=== PATIENT | female | born 1955 | race Caucasian/White ===

== ENCOUNTER 2016-12-01 12:15 | Inpatient (IN) | payer OTHER ==
--- NOTE | ~2016-12-01 | HP ---
History And Physical [place] [id number] [facility] [place]. [address] NAME: BROOKE HERNADEZ : 55 STATUS : ADM Adis PAT#: [id number] AGE: 61 ADM/REG DATE : 12/01/16 MR#: [id number] REPORT SERV DATE: 12/02/16 DICTATED BY: SANTOS ROBERTS DATE: 12/02/16 REPORT STATUS : Draft TRANSCRIBED BY: MODL DATE: 12/02/16 DATE OF ADMISSION: 12/01/2016 REASON FOR ADMISSION: Ovarian cancer, diarrhea. HISTORY OF PRESENT ILLNESS: Ms. Hernadez is a delightful 61-year-old female with several year history of persistent ovarian cancer, currently receiving Gemzar and Avastin chemotherapy. She called the Answering Service yesterday complaining of lethargy, fatigue, and significant diarrhea. She was admitted to the hospital for IV fluid hydration. C diff was checked and was consistent with Clostridium difficile colonic infection and she was started on oral vancomycin. This morning, her diarrhea has gotten significantly better. She has not had any diarrhea since starting the vancomycin. She has not had any antibiotics in the recent past and has not had any hospital admissions. PAST MEDICAL HISTORY: Obesity, migraine headaches, gastroesophageal reflux disease, fibromyalgia, knee pain, hypertension, and cardiac dysfunction. PAST SURGICAL HISTORY: Cholecystectomy, arthroscopic knee surgery, and exploratory laparotomy with tumor debulking for her ovary cancer. GYNECOLOGIC HISTORY: Her colonoscopy is up to date as well as her mammogram. FAMILY HISTORY: Her mother of non-Hodgkin's lymphoma. SOCIAL HISTORY: Negative tobacco, alcohol, or illicit drug use. MEDICATIONS: Please see chart. ALLERGIES: COMPAZINE, SHE GETS SEIZURES. REVIEW OF SYSTEMS: Significant for resolved diarrhea, fatigue. She denies chest pain, no shortness of breath. She denies any vaginal bleeding. No current abdominal pain. PHYSICAL EXAMINATION: VITAL SIGNS: Her temperature is 98.8, pulse is 83, blood pressure is 170/72. HEENT: Normocephalic, atraumatic. HEART: Regular rate and rhythm. LUNGS: Clear to auscultation bilaterally. She has 1+ bilateral lower extremity edema that is due to her cardiac dysfunction, she is on diuretics. ABDOMEN: Soft, nontender, nondistended. PELVIC: Deferred. LABORATORY DATA: On laboratory evaluation, her white count upon admission was 15.1, now it is 12.5, her hemoglobin is 8.4. Her kidney function has improved with a creatinine of 1.55 on admission down to 1.51, that is her baseline. KUB was consistent with normal bowel gas History And Physical [address] [address] NAME: BROOKE HERNADEZ : 55 STATUS : ADM Adis PAT#: [id number] AGE: 61 ADM/REG DATE : 12/01/16 MR#: [id number] REPORT SERV DATE: 12/02/16 DICTATED BY: SANTOS ROBERTS DATE: 12/02/16 REPORT STATUS : Draft TRANSCRIBED BY: MODL DATE: 12/02/16 pattern with no colonic or small bowel distention or free air. ASSESSMENT AND PLAN: Going forward, I will continue the oral vancomycin at 125 mg p.o. q.6 hours, this will be given for a total of twenty one days. She should be able to go home tomorrow with additional 24 hours of IV fluid hydration and to ensure that her diarrhea has completely resolved. This plan was discussed in detail with Ms. Hernadez who is in agreement. She understands the antibiotic plan going forward. BLAS/NINO Santos Roberts MD / [id number] CC: MD Luis Esposito [facility]
--- NOTE | ~2016-12-01 | CN ---
Consultation Report [place] [address] [id number] [facility] [place]. [address] NAME: BROOKE JOHANSEN : 55 STATUS : ADM Adis PAT#: [id number] AGE: 61 ADM/REG DATE : 12/01/16 MR#: [id number] REPORT SERV DATE: 12/02/16 DICTATED BY: KATERIN TONEY DATE: 12/02/16 REPORT STATUS : Draft TRANSCRIBED BY: MODL DATE: 12/02/16 HOSPITALIST CONSULTATION DATE OF CONSULTATION: 12/01/2016 REASON FOR CONSULTATION: Uncontrolled hypertension per Dr. Roberts. HISTORY OF PRESENT ILLNESS: This is an awake, alert, and oriented, very pleasant 61-year- old, female, who was admitted today to Dr. Roberts for diarrhea and dehydration in the setting of ovarian cancer. Due to her persistent hypertension since admission, we have been asked to evaluate and manage this condition. The patient reports having uncontrolled hypertension for approximately one month and is currently working with Dr. Todd in an effort to appropriately manage her uncontrolled hypertension. At this time, she denies chest pain, palpitations, dyspnea, headaches, and dizziness. She does complain of generalized muscle aches with a history of fibromyalgia. PAST MEDICAL HISTORY: 1. Migraines. 2. High cholesterol. 3. Hypertension. 4. Pericardial effusion. 5. Pleural effusion. 6. Arthritis. 7. Fibromyalgia. 8. GERD. 9. Diverticulitis. 10.Ascites. 11.Ovarian cancer, last date of chemo on 04/25/2015. 12.Bipolar disorder. 13.Depression. 14.Anemia. PAST SURGICAL HISTORY: 1. Cholecystectomy, 2001. 2. Bladder surgery, . 3. Knee arthroscopies x2, 2009 and 2011. 4. T and A as a child. 5. RIJ port placement, 02/2015. 6. Ex-lap, 04/2015. The patient's PCP is listed as Dr. Ishmael Lopez, in [place]. She sees Dr. Todd of Cardiology, as well as Dr. Santos Roberts and Diogo Srinivasan. 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 She Consultation Report [address] [place]. [address] NAME: BROOKE JOHANSEN : 55 STATUS : ADM Adis PAT#: [id number] AGE: 61 ADM/REG DATE : 12/01/16 MR#: [id number] REPORT SERV DATE: 12/02/16 DICTATED BY: KATERIN TONEY DATE: 12/02/16 REPORT STATUS : Draft TRANSCRIBED BY: NINO DATE: 12/02/16 denies tobacco, alcohol, and illicit drug use. FAMILY HISTORY: The patient's mother with history of hypertension, the patient's father is also with no known medical history. ALLERGIES: COMPAZINE AND CEPHALEXIN. HOME MEDICATIONS: 1. Norvasc 5 mg p.o. daily. 2. Abilify 30 mg p.o. daily. 3. Butrans 20 mcg patch one patch topical every Saturday. 4. Carvedilol 25 mg p.o. twice daily. 5. Catapres 0.1 mg p.o. daily p.r.n. systolic blood pressure greater than 160. 6. Clarinex tab 5 mg p.o. daily. 7. Furosemide 20 mg p.o. daily. 8. Hydralazine 100 mg p.o. every morning. 9. Hydralazine 50 mg p.o. at noon and every bedtime. 10.Hydrocodone 10/325 one tab p.o. twice daily p.r.n. pain. 11.Synthroid 25 mcg p.o. daily. 12.Zofran 4 mg p.o. q.8 hours p.r.n. 13.Phenergan 25 mg p.o. daily p.r.n. nausea and vomiting. 14.Maxalt 10 mg p.o. p.r.n. onset of migraine. 15.Zocor 10 mg p.o. daily. 16.Diovan 320 mg p.o. daily. 17.Effexor XR 150 mg p.o. daily. 18.Ambien 10 mg p.o. at bedtime p.r.n. REVIEW OF SYSTEMS: A complete 10-point review of systems was negative except as per HPI. PHYSICAL EXAMINATION: VITAL SIGNS: Temperature 98.7, pulse 73, respiratory rate 17, blood pressure 198/89, SpO2 96% on room air. GENERAL: Well-appearing female, in no acute distress. NEUROLOGIC: Awake, alert, and oriented x3 without focal deficit. HEENT: Normocephalic and atraumatic without lymphadenopathy. NECK: Supple. No JVD. LUNGS: CTA in all lung mckee with normal respiratory effort. CV: Regular rate and rhythm. S1 and S2 auscultated, without murmur, rub, gallop, or click. ABDOMEN: Soft, round, nontender. Bowel sounds hyperactive in all quadrants. No masses. EXTREMITIES: No cyanosis and cap refill within normal limits. No edema in bilateral upper extremities. However, generalized edema to bilateral lower extremities noted. PSYCH: Normal affect. SKIN: Clean, dry, and intact, with mucous membranes pink and moist. Consultation Report [id number] [place]. [address] NAME: BROOKE JOHANSEN : 55 STATUS : ADM Adis PAT#: [id number] AGE: 61 ADM/REG DATE : 12/01/16 MR#: [id number] REPORT SERV DATE: 12/02/16 DICTATED BY: KATERIN TONEY DATE: 12/02/16 REPORT STATUS : Draft TRANSCRIBED BY: NINO DATE: 12/02/16 LABS: BUN and creatinine 50 and 1.55, no recent baseline to compare; potassium 3.7, sodium 136, and glucose 98. ASSESSMENT AND PLAN: 1. Uncontrolled hypertension. The patient was recently diagnosed and treatment plan has been started. We will continue her current medications. We will add p.r.n. antihypertensive and monitor her labs. 2. Elevated creatinine. Again, no recent baseline to compare, question related to hypertension versus her fluid status. We will continue her current IVF at her current rate as well as her current medications. We will monitor and work to control her hypertension. 3. Ascites, this is chronic. The patient is on Lasix with history over of ovarian cancer, with previous paracentesis. We will continue her current treatment as well as monitoring her labs. 4. Fibromyalgia, this is chronic. She complains of generalized muscle pain which she attributes to lying in bed. We will continue her current medications and add Robaxin as an adjuvant. Thank you for this consult. We are pleased to follow this patient with you. This consult was completed through thorough review of [employer], old records, [employer], current chart, as well as thorough interview with the patient. LALA/NINO Katerin Toney NP / [id number] CC: MD Cassy Esposito M.D.
[~2016-12-01 12:15] MED LIST: ABILIFY30 MG PO; AMB10 PO; CLARINEX5 MG PO; COMP10B PO; EFFEXOR XR150 MG PO; LISINOPRIL40 MG PO; LOVENOX40 SC; MICROZIDE PO; PCET PO; PERCOCET1 TA2 PO; PERCOCET1 TA3 PO; ZOCOR10 PO; ZOFRAN4 PO
[2016-12-01 13:47] LABS: HEMATOCRIT 28.3 % (36.0-48.0); HEMOGLOBIN 9.5 g/dL (12.0-16.0); MEAN CORPUS HGB CONC 33.6 g/dL (32.0-36.0); MEAN PLATELET VOLUME 9.2 fL (9.2-13.0); RBC DISTRIBUTION WIDTH 15.5 % (12.0-16.0); RED CELL COUNT 2.83 10/6/uL (4.0-5.6)
[2016-12-01 13:50] LABS: MANUAL DIFF YES %; MEAN CORPUSCULAR HEMOGLOB 33.6 pg (26.0-34.0); PLATELET COUNT 135 10/3/uL (150-400); WHITE BLOOD CELLS 15.1 10/3/uL (4.5-10.5)
[2016-12-01] MEDS ORDERED: ABILIFY30 MG PO (14:05)
[2016-12-01 14:06] LABS: CALCIUM, SERUM 8.2 MG/DL (8.5-10.4); CHLORIDE, SERUM 102 MMOL/L (96-112); CO2 (CARBON DIOXIDE) 25 MMOL/L (24-34); GFR AFRICAN AMERICAN 41 ML/MIN (>=60); GFR NON AFRICAN AMERICAN 36 ML/MIN (>=60); GLUCOSE, SERUM 98 MG/DL (60-99); POTASSIUM, SERUM 3.7 MMOL/L (3.5-5.3); SODIUM, SERUM 136 MMOL/L (135-148)
[2016-12-01] MEDS ORDERED: CLARINEX5 MG PO (14:08)
[2016-12-01] MEDS ORDERED: ZOFRAN4 PO (14:08)
[2016-12-01] MEDS ORDERED: L20 PO (14:09)
[2016-12-01] MEDS ORDERED: APRES50 PO (14:09)
[2016-12-01] MEDS ORDERED: CAT1 PO (14:09)
[2016-12-01] MEDS ORDERED: HYDRALAZINE100 MG PO (14:09)
[2016-12-01] MEDS ORDERED: MAXALT10 MG PO (14:10)
[2016-12-01] MEDS ORDERED: EFFEXOR XR150 MG PO (14:10)
[2016-12-01] MEDS ORDERED: ZOCOR10 PO (14:10)
[2016-12-01] MEDS ORDERED: AMB10 PO (14:11)
[2016-12-01] MEDS ORDERED: NORCO1 TAB PO (14:11)
[2016-12-01] MEDS ORDERED: SYN.025B PO (14:11)
[2016-12-01] MEDS ORDERED: BUTRANS1 EAC2 TOP (14:11)
[2016-12-01] MEDS ORDERED: NORV5 PO (14:12)
[2016-12-01] MEDS ORDERED: DIOVAN320 MG PO (14:12)
[2016-12-01] MEDS ORDERED: COREG25 PO (14:12)
[2016-12-01] MEDS ORDERED: PR25 PO (14:12)
[2016-12-01 14:15] LABS: BUN (BLOOD UREA NITROGEN) 50 MG/DL (6-23); CREATININE 1.55 MG/DL (0.55-1.02)
[2016-12-01 14:25] LABS: BAND NEUTROPHILS 7 %; EOSINOPHILS 1 %; EOSINOPHILS ABSOLUTE (CALC) 0.15 10/3/uL (0.0-0.53); LYMPHOCYTES 5 %; LYMPHOCYTES ABSOLUTE (CALC) 0.76 10/3/uL (0.67-4.30); MACROCYTES 1+ (5-10/OIF) (0-5/OIF); MONOCYTES 2 %; NEUTROPHILS ABSOLUTE (CALC) 13.89 10/3/uL (2.02-8.40); PLATELET ESTIMATE SLT DEC (ADEQUATE); SEGMENTED NEUTROPHIL (0) 85 %; TOTAL NUCLEATED CELLS 100
[2016-12-01 14:26] LABS: POLYCHROMASIA 1+ (2-5/OIF) (0-1/OIF); TEARDROP SHAPED RBCS OCC (0-2/OIF)
[2016-12-02 05:14] LABS: BASOPHILS 0.1 %; BASOPHILS ABSOLUTE 0.01 10/3/uL (0.0-0.16); EOSINOPHILS 0.9 %; EOSINOPHILS ABSOLUTE 0.11 10/3/uL (0.0-0.53); HEMOGLOBIN 8.4 g/dL (12.0-16.0); IMMATURE GRANULOCYTES 0.2 %; IMMATURE GRANULOCYTES ABSOLUTE 0.02 10/3/uL (0.0-0.11); LYMPHOCYTES 5.9 %; LYMPHOCYTES ABSOLUTE 0.74 10/3/uL (0.67-4.30); MEAN CORPUS HGB CONC 34.4 g/dL (32.0-36.0); MEAN CORPUSCULAR HEMOGLOB 34.4 pg (26.0-34.0); MEAN PLATELET VOLUME 8.8 fL (9.2-13.0); MONOCYTES ABSOLUTE 0.13 10/3/uL (0.21-1.20); NEUTROPHILS 91.9 %; NEUTROPHILS ABSOLUTE 11.49 10/3/uL (2.02-8.40); PLATELET COUNT 111 10/3/uL (150-400); RBC DISTRIBUTION WIDTH 15.4 % (12.0-16.0); RED CELL COUNT 2.44 10/6/uL (4.0-5.6); WHITE BLOOD CELLS 12.5 10/3/uL (4.5-10.5)
[2016-12-02 05:19] LABS: HEMATOCRIT 24.4 % (36.0-48.0); MANUAL DIFF NO %
[2016-12-02 05:21] LABS: CALCIUM, SERUM 8.1 MG/DL (8.5-10.4); CHLORIDE, SERUM 104 MMOL/L (96-112); CO2 (CARBON DIOXIDE) 23 MMOL/L (24-34); CREATININE 1.51 MG/DL (0.55-1.02); GFR AFRICAN AMERICAN 43 ML/MIN (>=60); GFR NON AFRICAN AMERICAN 37 ML/MIN (>=60); POTASSIUM, SERUM 3.7 MMOL/L (3.5-5.3); SODIUM, SERUM 136 MMOL/L (135-148)
[2016-12-02 05:23] LABS: BUN (BLOOD UREA NITROGEN) 42 MG/DL (6-23); GLUCOSE, SERUM 78 MG/DL (60-99)
[2016-12-03 05:35] LABS: BASOPHILS 0.2 %; BASOPHILS ABSOLUTE 0.01 10/3/uL (0.0-0.16); EOSINOPHILS 0.8 %; EOSINOPHILS ABSOLUTE 0.05 10/3/uL (0.0-0.53); HEMATOCRIT 24.8 % (36.0-48.0); HEMOGLOBIN 8.3 g/dL (12.0-16.0); IMMATURE GRANULOCYTES 0.3 %; IMMATURE GRANULOCYTES ABSOLUTE 0.02 10/3/uL (0.0-0.11); LYMPHOCYTES 11.5 %; MANUAL DIFF NO %; MEAN CORPUS HGB CONC 33.5 g/dL (32.0-36.0); MEAN CORPUSCULAR HEMOGLOB 33.6 pg (26.0-34.0); MEAN CORPUSCULAR VOLUME 100.4 fL (80-100); MEAN PLATELET VOLUME 8.5 fL (9.2-13.0); MONOCYTES 3.3 %; NEUTROPHILS 83.9 %; NEUTROPHILS ABSOLUTE 5.13 10/3/uL (2.02-8.40); PLATELET COUNT 86 10/3/uL (150-400); RBC DISTRIBUTION WIDTH 15.5 % (12.0-16.0); RED CELL COUNT 2.47 10/6/uL (4.0-5.6); WHITE BLOOD CELLS 6.1 10/3/uL (4.5-10.5)
[2016-12-03 05:44] LABS: BUN (BLOOD UREA NITROGEN) 31 MG/DL (6-23); CALCIUM, SERUM 7.6 MG/DL (8.5-10.4); CHLORIDE, SERUM 109 MMOL/L (96-112); CO2 (CARBON DIOXIDE) 23 MMOL/L (24-34); GFR AFRICAN AMERICAN 43 ML/MIN (>=60); GFR NON AFRICAN AMERICAN 37 ML/MIN (>=60); GLUCOSE, SERUM 91 MG/DL (60-99); POTASSIUM, SERUM 3.6 MMOL/L (3.5-5.3); SODIUM, SERUM 139 MMOL/L (135-148)
[2016-12-03] MEDS ORDERED: VANCOCIN HCL125 MG PO (12:43)
[2016-12-03] MEDS ORDERED: NORV10 PO (12:43)
[2016-12-03] MEDS ORDERED: CAT2 PO (12:44)
[2017-01-26] MEDS ORDERED: CARDCD240 PO (21:33)
[2017-01-26] MEDS ORDERED: PERI-COLACE1 TAB PO (21:33)
[2017-01-26] MEDS ORDERED: DIOVAN320 MG PO (21:34)
[2017-01-26] MEDS ORDERED: HYDRALAZINE100 MG PO (21:34)
[2017-01-26] MEDS ORDERED: CAT1 PO (21:34)
[2017-01-26] MEDS ORDERED: COREG25 PO (21:34)
[2017-01-26] MEDS ORDERED: SYN.025B PO (21:35)
[2017-01-26] MEDS ORDERED: NORCO1 TAB PO (21:35)
[2017-01-26] MEDS ORDERED: MAXALT10 MG PO (21:35)
[2017-01-26] MEDS ORDERED: ZOCOR10 PO (21:36)
[2017-01-26] MEDS ORDERED: AMB10 PO (21:36)
[2017-01-26] MEDS ORDERED: L20 PO (21:36)
[2017-01-26] MEDS ORDERED: CLARIT10 PO (21:38)
[2017-01-26] MEDS ORDERED: EFFEXOR XR150 MG PO (21:38)
[2017-01-26] MEDS ORDERED: ABILIFY30 MG PO (21:39)
[2017-01-26] MEDS ORDERED: ACET500CAP PO (21:39)
[2017-01-26] MEDS ORDERED: OCEAN NAS (21:40)
[2017-01-26] MEDS ORDERED: CATAPRES3 TOP (21:44)
[2017-01-26] MEDS ORDERED: CHEMO-THERAPY IV (21:45)
[2017-01-26] MEDS ORDERED: NEULASTA SC (21:47)
[2017-01-29] MEDS ORDERED: BENTYL20 PO (10:46)
[2017-01-29] MEDS ORDERED: VANCOCIN HCL125 MG PO (10:47)
[2017-01-29] MEDS ORDERED: SPIRO25 PO (10:49)
== END 2016-12-03 14:20 | disposition home or self-care (01) | DRG 641 ==
LOC: 4EA 12:15
PROVIDERS: Obstetrics & Gynecology Gynecology
DX: E86.0 Dehydration (principal); C56.9 Malignant neoplasm of unspecified ovary; N17.9 Acute kidney failure, unspecified; R18.8 Other ascites; N18.3 Chronic kidney disease, stage 3 (moderate); M79.7 Fibromyalgia; I12.9 Hypertensive chronic kidney disease with stage 1 through stage 4 chronic kidney disease, or unspecified chronic kidney disease
CPT/HCPCS: 74000; 80048; 85025; 87493; 87493-59; 96372; 96374; 96376; A9270-GY; G0378; J0360; J2405